=== PATIENT | male | born 1985 | race Caucasian/White ===

== ENCOUNTER 2018-11-17 18:19 | Emergency (ER) | payer BC ==
[2018-11-17] MEDS ORDERED: Lidocaine 2% Viscous Solution 15 ML Cup PO ONE (18:23)
[2018-11-17] MEDS ORDERED: Benzocaine 20% Topical Spray UD MUCMEM ONE (18:23)
--- NOTE | 2018-11-17 18:23 | EDM.PDOC ---
ED HPI GENERAL MEDICAL PROBLEM - General Stated Complaint: PT HAS TOOTHACHE Time Seen by Provider: 11/17/18 18:22 Source of Information: Reports: Patient History Limitations: Reports: No Limitations - History of Present Illness INITIAL COMMENTS - FREE TEXT/NARRATIVE: HISTORY AND PHYSICAL: Dental Pain History of present illness: Patient is a 33-year-old male who presents to the emergency room with complaints of left upper dental pain. He states approximately 1 month ago his tooth was broken off at the root. He states it did not bother him until approximately one week ago. He now has pain and tenderness to the gumline. He denies any fever, chills, chest pain, shortness of breath or cough. Denies any abdominal pain, nausea, vomiting, diarrhea or constipation. He has been able to eat and drink appropriately. He did call his dentist was able to get him in the first week of November. Review of systems: As per history of present illness and below otherwise all systems reviewed and negative. Past medical history: As per history of present illness and as reviewed below otherwise noncontributory. Surgical history: As per history of present illness and as reviewed below otherwise noncontributory. Social history: See social history for further information Family history: As per history of present illness and as reviewed below otherwise noncontributory. Physical exam: General: Well-developed and well-nourished 33-year-old male. Alert and oriented. Nontoxic appearing and in no acute distress. HEENT: Atraumatic, normocephalic, pupils equal and reactive bilaterally, negative for conjunctival pallor or scleral icterus, mucous membranes moist, # 8 has been extracted appears to have moderate erythema/tenderness at the gumline #9 has been extracted. TMs normal bilaterally, throat clear, neck supple , nontender, trachea midline. No drooling or trismus noted. No meningeal signs. No hot potato voice noted. Lungs: Clear to auscultation, breath sounds equal bilaterally, chest nontender. Heart: S1S2, regular rate and rhythm without overt murmur Abdomen: Soft, nondistended, nontender. Negative for masses or hepatosplenomegaly. Negative for costovertebral tenderness. Pelvis: Stable nontender. Genitourinary: Deferred. Rectal: Deferred. Skin: Intact, warm, dry. No lesions or rashes noted. Extremities: Atraumatic, negative for cords or calf pain. Neurovascular unremarkable. Neuro: Awake, alert, oriented. Cranial nerves II through XII unremarkable. Cerebellum unremarkable. Motor and sensory unremarkable throughout. Exam nonfocal. Notes: Patient does have an appointment for the first week of November with the dentist. He declines the need for any prescribed pain medication. Supportive care measures were reviewed and discussed at home. He voices understanding and is agreeable to plan of care. Denies any further questions or concerns at this time. Diagnostics: None Therapeutics: Viscous Lidocaine/[place] Prescription: Pen VK TID x 10 days Impression: Dental abscess Plan: 1. Please take the antibiotic as prescribed. Rinse your mouth after each meal to prevent food getting lodged into the extraction site. 2. Tylenol and/or ibuprofen as needed for pain management. "Tooth Balls" have been given to you; apply along the gumline every 2-3 hours as needed. Do not swallow these; external use only. 3. Follow-up with a dentist for definitive care. Return to the ED as needed and as discussed. Definitive disposition and diagnosis as appropriate pending reevaluation and review of above. Duration: Week(s): tooth/upper incisor Pain Score (Numeric/FACES): 6 - Related Data Allergies Allergy/AdvReac Type Severity Reaction Status Date / Time No Known Allergies Allergy Verified 11/17/18 18:28 Home Meds: Home Meds . [No Known Home Meds] 11/17/18 [History] ED ROS ENT - Review of Systems Review Of Systems: ROS reveals no pertinent complaints other than HPI. ED EXAM, ENT - Physical Exam Exam: See Below (See dictation) Course - Vital Signs Last Recorded V/S: Last Vital Signs Temp 98 F 11/17/18 18:20 Pulse 94 11/17/18 18:20 Resp 18 11/17/18 18:20 BP 125/84 11/17/18 18:20 Pulse Ox 96 11/17/18 18:20 - Orders/Labs/Meds Meds: Medications Discontinued Medications Generic Name Dose Route Start Last Admin Trade Name Freq PRN Reason Stop Dose Admin Benzocaine 2 each 11/17/18 18:23 11/17/18 18:37 Hurricaine One 20% MUCMEM 11/17/18 18:24 2 each ONETIME ONE Administration Lidocaine HCl 15 ml 11/17/18 18:23 11/17/18 18:37 Xylocaine 2% Viscous PO 11/17/18 18:24 15 ml ONETIME ONE Administration Departure - Departure Time of Disposition: 18:39 Disposition: Home, Self-Care 01 Clinical Impression: Dental abscess - Discharge Information Instructions: Dental Abscess, [id number] Additional Instructions: The following information is given to patients seen in the emergency department who are being discharged to home. This information is to outline your options for follow-up care. We provide all patients seen in our emergency department with a follow-up referral. The need for follow-up, as well as the timing and circumstances, are variable depending upon the specifics of your emergency department visit. If you don't have a primary care physician on staff, we will provide you with a referral. We always advise you to contact your personal physician following an emergency department visit to inform them of the circumstance of the visit and for follow-up with them and/or the need for any referrals to a consulting specialist. The emergency department will also refer you to a specialist when appropriate. This referral assures that you have the opportunity for follow-up care with a specialist. All of these measure are taken in an effort to provide you with optimal care, which includes your follow-up. Under all circumstances we always encourage you to contact your private physician who remains a resource for coordinating your care. When calling for follow-up care, please make the office aware that this follow-up is from your recent emergency room visit. If for any reason you are refused follow-up, please contact the [facility] at and asked to speak to the emergency department charge nurse. [facility] [address] [place] [id number] [address] [id number] 1. Please take the antibiotic as prescribed. Rinse your mouth after each meal to prevent food getting lodged into the extraction site 2. Tylenol and/or ibuprofen as needed for pain management. "Tooth Balls" have been given to you; apply along the gumline every 2-3 hours as needed. Do not swallow these; external use only. 3. Follow-up with a dentist for definitive care. Return to the ED as needed and as discussed..
== END 2018-11-17 18:50 | disposition home or self-care (01) ==
LOC: MW.ED 18:19
DX: K04.7 Periapical abscess without sinus (principal)
CPT/HCPCS: 99282; A9270